=== PATIENT | male | born 1980 | race Caucasian/White ===

== ENCOUNTER 2019-05-18 10:58 | Emergency (ER) | payer SELFPAY ==
[2019-05-18] MEDS ORDERED: Ondansetron ODT 4 MG TAB ONE (11:25)
== END 2019-05-18 12:53 | disposition home or self-care (01) ==
LOC: ERS 10:58
DX: J10.1 Influenza due to other identified influenza virus with other respiratory manifestations (principal); F41.9 Anxiety disorder, unspecified; I10 Essential (primary) hypertension
CPT/HCPCS: 87804; 99283; Q0162

== ENCOUNTER 2019-07-16 01:32 | Inpatient (IN) | payer SELFPAY ==
[2019-07-16] MEDS ORDERED: Ondansetron PF 4 MG/2 ML Vial ONE (01:38)
[2019-07-16] MEDS ORDERED: Diazepam 5 MG TAB ONE (01:38)
[2019-07-16] MEDS ORDERED: Lorazepam 2 MG/ML VIAL ONE ×2 (01:38→03:05)
[2019-07-16 02:40] LABS: Hemoglobin 14.3 g/dL (14.0-18.0); Mean Corpuscular HGB CONC 34.8 g/dL (32.0-36.0); Mean Corpuscular Hemoglobin 36.5 pg (27.0-31.0); Mean Platelet Volume 7.5 fL (7.4-10.4); Platelet Count 128 thou/uL (130-400); RBC Distribution Width 12.7 % (11.5-14.5); White Blood Cell (WBC) Count 13.2 thou/uL (4.8-10.8)
[2019-07-16 02:49] LABS: #Lymphocytes 0.6 thou/uL (1.20-3.40); #Monocytes 0.5 thou/uL (0.11-0.59); %Basophils 0.3 % (0.0-1.0); %Eosinophils 0.3 % (0.0-10.0); %Lymphocytes 4.4 % (21.0-51.0); %Monocytes 4.1 % (0.0-10.0); %Neutrophils 90.9 % (42.0-75.0)
[2019-07-16 03:02] LABS: Albumin 4.2 g/dL (3.5-5.0)
[2019-07-16 03:03] LABS: Chloride 97 mmol/L (98-107); Potassium 3.7 mmol/L (3.5-5.1); Sodium 132 mmol/L (136-145)
[2019-07-16 03:04] LABS: Calcium 9.8 mg/dL (7.8-10.44); Globulin 3.9 g/dL (2.4-3.5); Glucose 209 mg/dL (70-105); Protein, Total 8.1 g/dL (6.0-8.3)
[2019-07-16 03:06] LABS: Anion Gap 21 mmol/L (10-20); Bilirubin, Total 3.3 mg/dL (0.2-1.2)
[2019-07-16 03:07] LABS: Alkaline Phosphatase 156 U/L (40-110)
[2019-07-16 03:08] LABS: BUN (Urea Nitrogen) 6 mg/dL (8.9-20.6); Calc. Creatinine Clearance 0 mL/min (70-130); Estimated GFR-MDRD 82
[2019-07-16 03:09] LABS: AST (SGOT) 154 U/L (5-34)
[2019-07-16 03:10] LABS: ALT (SGPT) 45 U/L (8-55); Lipase 61 U/L (8-78)
[2019-07-16 03:21] LABS: Lactic Acid 2.3 mmol/L (0.5-2.2)
[2019-07-16 03:25] LABS: Carbon Dioxide 17 mmol/L (22-29)
[2019-07-16 03:53] LABS: INR-International Normal Ratio 1.2; PTT 29.5 SEC (22.9-36.1); Prothrombin Time 15.4 SEC (12.0-14.7)
[2019-07-16] MEDS ORDERED: Lorazepam 2 MG/ML VIAL SLOW IVP PRN (04:53)
[2019-07-16] MEDS ORDERED: Ondansetron PF 4 MG/2 ML Vial IVP PRN ×2 (04:54→05:10)
[2019-07-16] MEDS ORDERED: Ondansetron ODT 4 MG TAB SL PRN (04:54)
[2019-07-16] MEDS ORDERED: Sodium Chloride 0.9% 1,000 ML IV SCH (05:00)
[2019-07-16] MEDS ORDERED: Dextrose 5%-Lactated Ringers 1,000 ML IV SCH (05:10)
[2019-07-16 05:17] VITALS: BMI 22.7
[2019-07-16] MEDS ORDERED: Diazepam 5 MG TAB PO PRN (05:21)
[2019-07-16] MEDS ORDERED: Diazepam 5 MG TAB PO SCH (05:30)
--- NOTE | 2019-07-16 05:34 | PDOC.FPRHP ---
- History of Present Illness Chief Complaint: seizure History of Present Illness: Patient is a 38M with PMHx of HTN, anxiety, and etoh abuse. Patient reports a 15-year hx of alcohol abuse, with a family hx of his father having etoh abuse. Patient was brought to the ED today because his woke up and saw patient having a grand mal seizure in the bed. Patient reportedly lost consciousness and bit his tongue. He did not have incontinence and does not remember the episode. Patient reports remembering seizing 2 days ago. Denies hallucinations. He has never had seizures, hallucinations, or been in alcohol withdrawal. He reports he stopped drinking Sunday night because he desires quitting. He usually drinks 12 beers/day and occasionally 1 pint of fireball. He has never tried to quit drinking before. He endorses vomiting x1, nausea, some headaches, fidgeting, sweating, and tremors. PCP: [facility] ED Course: 10mg diazepam, 2mg ativan x 2, 1L NS, 1 banana bag - Allergies/Adverse Reactions Allergies Allergy/AdvReac Type Severity Reaction Status Date / Time Sulfa (Sulfonamide Allergy Verified 07/16/19 05:16 Antibiotics) - Home Medications Medication Instructions Recorded Confirmed Type No Known 07/16/19 07/16/19 History - History PMHx: HTN, anxiety, alcohol abuse x 15 years PSHx: tonsillectomy FHx: father had a hx of etoh abuse Social: alcohol abuse x 15 years (12 beers/day, occasionally 1 pint fireball), no smoking or drug use; endorses xanax use for anxiety - Review of Systems General: denies: fever/chills, weight/appetite/sleep changes Eyes: denies: eye pain, vision changes ENT: denies: nasal congestion, rhinorrhea Respiratory: denies: cough, shortness of breath Cardiovascular: denies: chest pain, edema Gastrointestinal: reports: nausea, vomiting Genitourinary: denies: incontinence, dysuria Skin: denies: rashes, lesions Musculoskeletal: denies: tenderness, stiffness Neurological: reports: seizure. denies: numbness Psychological: reports: anxiety - Vital signs BP: [144/92] HR: [123] RR: [22] Tmax: [98.2F] Pox: [96]% on [RA] Wt: [77.11kg ] - Physical Exam Constitutional: NAD, well developed HEENT: normocephalic and atraumatic, no scleral icterus, MMM Neck: supple, FROM Chest: no-tender to palpation, no lesions Heart: normal S1/S2, other (regular rhythm, tachycardic rate) Lungs: CTAB, no respiratory distress Abdomen: soft, other (slightly ttp diffusely) Musculoskeletal: normal structure, normal tone Neurological: other (resting hand tremor) Skin: no rash/lesions, good turgor Heme/Lymphatic: no unusual bruising or bleeding, no purpura Psychiatric: normal mood and affect, intact recent and remote memory FMR H&P: Results - Labs Result Diagrams: 07/16/19 02:10 07/16/19 02:10 Lab results: WBC 13.2 thou/uL (4.8-10.8) H 07/16/19 02:10 Hgb 14.3 g/dL (14.0-18.0) 07/16/19 02:10 Hct 41.0 % (42.0-52.0) L 07/16/19 02:10 MCV 105.0 fL (78.0-98.0) H 07/16/19 02:10 Plt Count 128 thou/uL (130-400) L 07/16/19 02:10 Neutrophils % 90.9 % (42.0-75.0) H 07/16/19 02:10 Sodium 132 mmol/L (136-145) L 07/16/19 02:10 Potassium 3.7 mmol/L (3.5-5.1) 07/16/19 02:10 Chloride 97 mmol/L (98-107) L 07/16/19 02:10 Carbon Dioxide 17 mmol/L (22-29) L 07/16/19 02:10 BUN 6 mg/dL (8.9-20.6) L 07/16/19 02:10 Creatinine 1.02 mg/dL (0.7-1.3) 07/16/19 02:10 Glucose 209 mg/dL (70-105) H 07/16/19 02:10 Lactic Acid 2.3 mmol/L (0.5-2.2) H 07/16/19 02:59 Calcium 9.8 mg/dL (7.8-10.44) 07/16/19 02:10 Total Bilirubin 3.3 mg/dL (0.2-1.2) H 07/16/19 02:10 AST 154 U/L (5-34) H 07/16/19 02:10 ALT 45 U/L (8-55) 07/16/19 02:10 Alkaline Phosphatase 156 U/L (40-110) H 07/16/19 02:10 Serum Total Protein 8.1 g/dL (6.0-8.3) 07/16/19 02:10 Albumin 4.2 g/dL (3.5-5.0) 07/16/19 02:10 Lipase 61 U/L (8-78) 07/16/19 02:10 - EKG Interpretation EKG: Sinus tachycardia FMR H&P: A/P - Problem List (1) Alcohol withdrawal Current Visit: Yes Status: Acute Code(s): F10.239 - ALCOHOL DEPENDENCE WITH WITHDRAWAL, UNSPECIFIED (2) Seizures Current Visit: Yes Status: Acute Code(s): R56.9 - UNSPECIFIED CONVULSIONS (3) Alcoholic ketoacidosis Current Visit: Yes Status: Acute Code(s): E87.2 - ACIDOSIS (4) Macrocytic anemia Current Visit: Yes Status: Chronic Code(s): D53.9 - NUTRITIONAL ANEMIA, UNSPECIFIED (5) Hyperbilirubinemia Current Visit: Yes Status: Acute Code(s): E80.6 - OTHER DISORDERS OF BILIRUBIN METABOLISM (6) Transaminitis Current Visit: Yes Status: Acute Code(s): R74.0 - NONSPEC ELEV OF LEVELS OF TRANSAMNS & LACTIC ACID DEHYDRGNSE (7) HTN (hypertension) Current Visit: Yes Status: Chronic Code(s): I10 - ESSENTIAL (PRIMARY) HYPERTENSION (8) Anxiety Current Visit: Yes Status: Chronic Code(s): F41.9 - ANXIETY DISORDER, UNSPECIFIED - Plan Patient is a 38M with PMHx of HTN, anxiety, etoh abuse admitted for alcohol withdrawal #Alcohol withdrawal with seizures #Alcohol abuse -patient has extensive etoh abuse hx x 15 years, drinking 12 beers/day -reportedly stopping drinking sunday night -patient reports seizure activity 2 days ago, witnessed seizure last night -given 2mg ativan x 2 and 10mg diazepam in ED, chelsea calderon -CIWA score 29 in ED -[facility] protocol for trigger-guided treatment in acute phase -when patient stabilizes can consider transitioning to librium taper #Alcoholic ketoacidosis -lactic acid 2.3 -bicarb 17 -anion gap -UA and beta-hydroxybutyrate pending -start on D5Lr @ 125 -will continue to monitor #Transaminitis -AST 154 -ALT 45 -AST/ALT ratio >2, likely 2/2 alcohol -in combination with hyperbilirubinemia, will get liver US #Hyperbilirubinemia #Elevated alk phos -total bilirubin 3.3 -alk phos 156 -patient had slight abdominal ttp diffusely, was not complaining of RUQ pain -direct bilirubin pending -Liver US pending #Macrocytic anemia -H/H 14.3/41/0 -MCV 105 -B12 and RBC folate pending #HTN -untreated, patient does not have current pcp -will continue to monitor and can start on po meds prn #Anxiety -reportedly takes xanax for anxiety; receives this from someone from [facility] -reportedly last taken 1 week ago -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 Pertinent changes/additions are listed here. Quinten Cagle is a 38 year old M with a PMH of HTN-untreated, alcohol abuse who presented to the ED after having a seizure while sleeping. witnessed seizure. Pt states that he decided to quit drinking about three days ago, quit cold turkey. States that he also has SHIRA and has been taking Xanax that was prescribed by previous provider [facility]. Normally drinks about a 12 pk per day and occasionally also drinks a pint of fireball as well. After one day without alcohol, patient developed sweats, tremors, nausea/vomiting, diffuse abdominal pain. States that he had one seizure one day [employer] and two while sleeping last night. Denies incontinence, states that he did bite his tongue. No hx of alcohol withdrawl or seizures or DTs but he has never attempted stopping alcohol. He has been heavily drinking for about 15 years. Denies any fever, chills, chest pain, hematemesis, GI bleeding. In the ED, initial CIWA score was 29. Vitals were sig for tachycardia in 120s, BP 144/92, RR 22, T 98.2, O2 sat 96% on RA. He was given 1 L banana bag, 1 L NS, Ativan 2 mg X2, Diazepam 10 mg. Labs show mild anemia with hematocrit of 41.0, INR 1.2, Na 132, Lactic acid 2.3, Tbili 3.3, AST 154, ALT 45, Alk Phos 156. EKG showed sinus tachycardia, no ST changes. CIWA score improved to 15 after treatment in ED. On exam, patient was not diaphoretic, but he did have slight resting tremor, more pronounced with extension of fingers. HEENT AT/NC, MMM, no JVD. Cardiac, tachycardic no murmurs, lungs CTAB. Abdomen has mild diffuse TTP. No LE edema. Admitting patient to inpatient tele for acute alcohol withdrawal, withdrawal seizures, alcoholic ketoacidosis. Checking betahydroxybuturate, Mag , Phos. Starting ASE protocol with diazepam, thiamine, magnesium, folate with LR with 5% dextrose. Will monitor ASE scores q4h. Once stable, recommend starting librium taper. For mild macrocytic anemia, checking rbc folate and B12. For elevated alk phos and tbili, will check direct bili and RUQ US. Patient desires complete alcohol cessation. Anticipate hospital stay >48 hours. Please see internist note above for full H&P, which I have reviewed and agree with. Code status: FULL Code PCP: LUZ Addendum - Attending - Attending Attestation Date/Time: 07/16/19 5622 I personally evaluated the patient and discussed the management with Dr. Schafer/ Keenan. I agree with the History, Examination, Assessment and Plan documented above with any addition or exceptions noted below. Patient here for EtOH withdrawal. No history of DT and no hallucinations/ sympathetic overdrive at this time. Will begin on scheduled benzos, banana bag, dextrose. Monitor symptoms. Consider discharge on taper but await drug screen.
[2019-07-16 06:56] LABS: Hemoglobin A1c 5.1 % (4.0-6.0)
[2019-07-16 07:04] LABS: Phosphorus 1.6 mg/dL (2.3-4.7)
[2019-07-16] MEDS ORDERED: Potassium Phosphate 9 MMOL in Sodium Chloride 0.9% 100 ML IVPB SCH (07:15)
--- NOTE | 2019-07-16 07:55 | ULT ---
US Gallbladder RUQ: 07/16/2019 5:16 AM CLINICAL HISTORY: Elevated bilirubin and alkaline phosphatase. STUDY: Limited right upper quadrant ultrasound of abdomen. COMPARISON: None. FINDINGS: Liver: Size: Normal. Echogenicity: Hyperechoic consistent with hepatic steatosis. Contour: Smooth. Mass: None. Bile ducts: No intrahepatic or extrahepatic biliary dilatation. Common bile duct measures 4 mm. Gallbladder: Normal. Pancreas: Head, body, and tail appear normal. Right kidney: No pelvicalyceal dilatation. Right kidney measuring 13.2 cm in length. IMPRESSION: Fatty liver
[2019-07-16] MEDS: Folic Acid 1 MG TAB PO SCH (08:08)
[2019-07-16] MEDS: Famotidine 20 MG TAB PO SCH ×2 (08:08→21:41)
[2019-07-16] MEDS: Enoxaparin Sodium 40 MG/0.4 ML SYRINGE SC SCH (08:08)
[2019-07-16] MEDS: Multivitamin W/ Minerals 1 TAB PO SCH (08:08)
[2019-07-16] MEDS ORDERED: Multivitamins, Adult 10 ML, Thiamine HCl 100 MG, Folic Acid 1 MG in Dextrose 5 %-0.45 %... IV SCH (09:00)
[2019-07-16] MEDS: chlordiazePOXIDE HCl 25 MG CAP PO SCH ×3 (09:26→21:41)
[2019-07-16 10:25] LABS: Anion Gap 11 mmol/L (10-20); BUN (Urea Nitrogen) 5 mg/dL (8.9-20.6); Calc. Creatinine Clearance 135 mL/min (70-130); Calcium 8.5 mg/dL (7.8-10.44); Carbon Dioxide 24 mmol/L (22-29); Chloride 102 mmol/L (98-107); Estimated GFR-MDRD Greater than 90; Glucose 113 mg/dL (70-105); Potassium 3.2 mmol/L (3.5-5.1); Sodium 134 mmol/L (136-145)
[2019-07-16 11:44] LABS: Bacteria/HPF None Seen HPF (None Seen); Bilirubin Negative (Negative); Blood, Urine Negative (Negative); Clarity Clear (Clear); Glucose, Urine (Dipstick) Normal (Negative); Leukocyte Negative Leu/uL (Negative); Nitrite Negative (Negative); Protein, Urine (Dipstick) 20 mg/dL (Neg-Trace); RBC/HPF 0-3 HPF (0-3); Squamous Epithelial None Seen HPF (0-3); WBC/HPF 0-3 HPF (0-3)
[2019-07-16 12:00] LABS: Amphetamine Not Detected (NotDetected); Barbiturates Screen Not Detected (NotDetected); Benzodiazepine Screen Detected (NotDetected); Cocaine Metabolite Screen Not Detected (NotDetected); Medtox Control Line Valid? VALID (VALID); Medtox Reader # READER 4; Methadone Not Detected (NotDetected); Methamphetamine Not Detected (NotDetected); Opiate Screen Not Detected (NotDetected); Oxycodone Screen Not Detected (NotDetected); Phencyclidine (PCP) Not Detected (NotDetected); THC/Cannabinoid Screen Not Detected (NotDetected); Tricyclic Screen Not Detected (NotDetected)
[2019-07-17] MEDS: chlordiazePOXIDE HCl 25 MG CAP PO SCH ×4 (02:23→21:13)
[2019-07-17] MEDS ORDERED: Diazepam 5 MG TAB PO PRN (04:00)
[2019-07-17 04:56] LABS: #Basophils 0.1 thou/uL (0.0-0.2); #Eosinphils 0.2 thou/uL (0.0-0.7); #Lymphocytes 1.4 thou/uL (1.20-3.40); #Monocytes 0.7 thou/uL (0.11-0.59); #Neutrophils 9.9 thou/uL (1.40-6.50); %Basophils 0.6 % (0.0-1.0); %Eosinophils 1.6 % (0.0-10.0); %Lymphocytes 11.1 % (21.0-51.0); %Monocytes 5.6 % (0.0-10.0); %Neutrophils 81.1 % (42.0-75.0); Hemoglobin 12.8 g/dL (14.0-18.0); Mean Corpuscular HGB CONC 34.8 g/dL (32.0-36.0); Mean Corpuscular Hemoglobin 36.8 pg (27.0-31.0); Mean Platelet Volume 7.5 fL (7.4-10.4); Platelet Count 98 thou/uL (130-400); RBC Distribution Width 12.5 % (11.5-14.5); Red Blood Cell (RBC) Count 3.48 mill/uL (4.70-6.10); White Blood Cell (WBC) Count 12.2 thou/uL (4.8-10.8)
[2019-07-17 05:16] LABS: ALT (SGPT) 45 U/L (8-55); AST (SGOT) 186 U/L (5-34); Albumin 3.9 g/dL (3.5-5.0); Alkaline Phosphatase 143 U/L (40-110); Anion Gap 13 mmol/L (10-20); BUN (Urea Nitrogen) 5 mg/dL (8.9-20.6); Bilirubin, Total 2.9 mg/dL (0.2-1.2); Calc. Creatinine Clearance 150 mL/min (70-130); Calcium 8.7 mg/dL (7.8-10.44); Carbon Dioxide 23 mmol/L (22-29); Chloride 98 mmol/L (98-107); Estimated GFR-MDRD Greater than 90; Globulin 3.5 g/dL (2.4-3.5); Glucose 77 mg/dL (70-105); Magnesium 1.9 mg/dL (1.6-2.6); Potassium 3.4 mmol/L (3.5-5.1); Protein, Total 7.4 g/dL (6.0-8.3); Sodium 131 mmol/L (136-145)
[2019-07-17 05:17] LABS: Phosphorus 1.9 mg/dL (2.3-4.7)
[2019-07-17] MEDS ORDERED: Potassium Phosphate 9 MMOL in Sodium Chloride 0.9% 100 ML IVPB SCH (07:30)
[2019-07-17] MEDS ORDERED: Lorazepam 2 MG/ML VIAL SLOW IVP PRN (07:37)
--- NOTE | 2019-07-17 08:08 | PDOC.FM ---
- Subjective Subjective: Doing well overnight, no acute events. Tolerating PO well. Tremor improved, no seizure-like events. Mentation at baseline. Still states he is committed to quitting EtOH and benzo use. No fever/chills, cough, congestion, CP, SOB. - Objective MAR Reviewed: Yes Vital Signs & Weight: Vital Signs (12 hours) Temp Pulse Resp BP BP Pulse Ox 07/17/19 04:22 142/93 H 07/17/19 03:30 99.6 F 94 23 H 142/93 H 98 07/17/19 00:00 98.8 F 89 23 H 140/87 140/87 97 07/16/19 21:37 98.6 F 92 18 134/88 98 Weight Admit Weight 80.286 kg Weight 80.286 kg Result Diagrams: 07/17/19 04:40 07/17/19 04:40 EKG Reviewed by me: Yes (NSR on tele) Phys Exam - Physical Examination Constitutional: NAD (resting comfortably, good spirits) HEENT: moist MMs Neck: supple Respiratory: no wheezing, no rales, no rhonchi, clear to auscultation bilateral Cardiovascular: RRR, no significant murmur, no rub Gastrointestinal: soft, non-tender, no distention, positive bowel sounds Musculoskeletal: no edema Neurological: moves all 4 limbs BL resting tremor Psychiatric: A&O x 3 Dx/Plan (1) Alcohol withdrawal Code(s): F10.239 - ALCOHOL DEPENDENCE WITH WITHDRAWAL, UNSPECIFIED Status: Acute (2) Hyperbilirubinemia Code(s): E80.6 - OTHER DISORDERS OF BILIRUBIN METABOLISM Status: Acute (3) Transaminitis Code(s): R74.0 - NONSPEC ELEV OF LEVELS OF TRANSAMNS & LACTIC ACID DEHYDRGNSE Status: Acute (4) HTN (hypertension) Code(s): I10 - ESSENTIAL (PRIMARY) HYPERTENSION Status: Chronic - Plan Plan: Patient is a 38M with PMHx of HTN, anxiety, etoh and xanax abuse admitted for alcohol withdrawal #Acute EtOH withdrawal in setting of EtOH abuse - patient has extensive etoh abuse hx x 15 years, drinking 12 beers/day - reportedly stopping drinking sunday night - patient reports seizure activity 2 days ago, witnessed seizure night prior to admissoin - given 2mg ativan x 2 and 10mg diazepam in ED, banana bag - Started on librium 25mg q6h with ASE 8-11, will cont to monitor and titrate as appropriate - will need continued taper at discharge, counseled at length on avoiding EtOH and other benzo use when on librium taper, voiced agreement and understanding. #Hypophos - replace and monitor as appropriate #Alcoholic ketoacidosis, resolved - Initial lactic acid 2.3, bicarb 17 -> 23. Gap closed. 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 Code: Full PCP: [facility] Addendum - Attending - Attending Attestation Date/Time: 07/17/19 8958 I personally evaluated the patient and discussed the management with Dr. Ellison. I agree with the History, Examination, Assessment and Plan documented above with any addition or exceptions noted below.
[2019-07-17] MEDS: Famotidine 20 MG TAB PO SCH ×2 (08:39→21:13)
[2019-07-17] MEDS: Multivitamin W/ Minerals 1 TAB PO SCH (08:39)
[2019-07-17] MEDS: Magnesium Oxide 400 MG TAB PO SCH (08:39)
[2019-07-17] MEDS: Folic Acid 1 MG TAB PO SCH (08:39)
[2019-07-17] MEDS: Thiamine 100 MG TAB PO SCH (08:39)
[2019-07-17] MEDS: Enoxaparin Sodium 40 MG/0.4 ML SYRINGE SC SCH (08:42)
[2019-07-17] MEDS ORDERED: chlordiazePOXIDE HCl 25 MG CAP PO SCH (10:45)
[2019-07-17 13:14] LABS: Hematocrit 37.1 % (37.5-51.0); RBC Folate Test Component 768 ng/mL (>498)
[2019-07-18 04:38] LABS: #Basophils 0.1 thou/uL (0.0-0.2); #Eosinphils 0.2 thou/uL (0.0-0.7); #Lymphocytes 1.4 thou/uL (1.20-3.40); #Monocytes 1.1 thou/uL (0.11-0.59); #Neutrophils 11.7 thou/uL (1.40-6.50); %Basophils 0.5 % (0.0-1.0); %Eosinophils 1.7 % (0.0-10.0); %Lymphocytes 9.8 % (21.0-51.0); %Monocytes 7.3 % (0.0-10.0); %Neutrophils 80.7 % (42.0-75.0); Hemoglobin 13.5 g/dL (14.0-18.0); Mean Corpuscular HGB CONC 33.9 g/dL (32.0-36.0); Mean Corpuscular Hemoglobin 36.2 pg (27.0-31.0); Mean Platelet Volume 7.8 fL (7.4-10.4); Platelet Count 136 thou/uL (130-400); RBC Distribution Width 12.5 % (11.5-14.5); Red Blood Cell (RBC) Count 3.72 mill/uL (4.70-6.10); White Blood Cell (WBC) Count 14.4 thou/uL (4.8-10.8)
[2019-07-18 05:18] LABS: ALT (SGPT) 52 U/L (8-55); AST (SGOT) 164 U/L (5-34); Albumin 4.4 g/dL (3.5-5.0); Alkaline Phosphatase 183 U/L (40-110); Anion Gap 12 mmol/L (10-20); BUN (Urea Nitrogen) 7 mg/dL (8.9-20.6); Bilirubin, Total 1.8 mg/dL (0.2-1.2); Calc. Creatinine Clearance 129 mL/min (70-130); Calcium 9.8 mg/dL (7.8-10.44); Carbon Dioxide 27 mmol/L (22-29); Chloride 95 mmol/L (98-107); Estimated GFR-MDRD Greater than 90; Globulin 3.8 g/dL (2.4-3.5); Glucose 111 mg/dL (70-105); Phosphorus 2.7 mg/dL (2.3-4.7); Potassium 3.4 mmol/L (3.5-5.1); Protein, Total 8.2 g/dL (6.0-8.3); Sodium 131 mmol/L (136-145)
[2019-07-18] MEDS ORDERED: Potassium Chloride 20 MEQ TAB PO SCH (07:00)
--- NOTE | 2019-07-18 07:16 | PDOC.FM ---
- Subjective Subjective: Doing well this morning, no acute events overnight. States has occasional tachycardia, BP improved. Tremor improved. Able to get some rest. No fever/ chills, CP, SOB, n/v. Tolerating PO well. Ambulating well. - Objective MAR Reviewed: Yes Vital Signs & Weight: Vital Signs (12 hours) Temp Pulse Resp BP BP Pulse Ox 07/18/19 03:55 98.9 F 104 H 18 137/83 137/83 97 07/18/19 03:01 124/88 07/17/19 21:15 124/88 07/17/19 20:22 98.2 F 97 14 124/88 96 Weight Admit Weight 80.286 kg Weight 80.286 kg I&O: 07/16/19 07/17/19 07/18/19 06:59 06:59 06:59 Intake Total 1400 Balance 1400 Result Diagrams: 07/18/19 04:25 07/18/19 04:25 EKG Reviewed by me: Yes (Tele: NSR, occasionally tachy) Phys Exam - Physical Examination Constitutional: NAD (resting comfortably) HEENT: moist MMs Neck: supple Respiratory: no wheezing, no rales, no rhonchi, clear to auscultation bilateral Cardiovascular: no significant murmur, no rub Tachycardia, regular rhythm Gastrointestinal: soft, non-tender, no distention, positive bowel sounds Musculoskeletal: no edema Neurological: moves all 4 limbs BL resting tremor, improved Psychiatric: normal affect, A&O x 3 Dx/Plan (1) Alcohol withdrawal Code(s): F10.239 - ALCOHOL DEPENDENCE WITH WITHDRAWAL, UNSPECIFIED Status: Acute (2) Hyperbilirubinemia Code(s): E80.6 - OTHER DISORDERS OF BILIRUBIN METABOLISM Status: Acute (3) Transaminitis Code(s): R74.0 - NONSPEC ELEV OF LEVELS OF TRANSAMNS & LACTIC ACID DEHYDRGNSE Status: Acute (4) HTN (hypertension) Code(s): I10 - ESSENTIAL (PRIMARY) HYPERTENSION Status: Chronic - Plan Plan: Patient is a 38M with PMHx of HTN, anxiety, etoh and xanax abuse admitted for alcohol withdrawal #Acute EtOH withdrawal in setting of EtOH abuse, improved - patient has extensive etoh abuse hx x 15 years, drinking 12 beers/day - reportedly stopping drinking sunday night - patient reports seizure activity 2 days ago, witnessed seizure night prior to admission - given 2mg ativan x 2 and 10mg diazepam in ED, banana bag - Started on librium 25mg q6h, increased to Librium 50mg TID with ASE 7-9 currently. - will need continued librium taper at discharge, counseled at length on avoiding EtOH and other benzo use when on librium taper, voiced agreement and understanding. #Hypophos, resolved - replaced, monitor #Alcoholic ketoacidosis, resolved - Initial lactic acid 2.3, bicarb 17 -> 23. Gap closed. 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 Code: Full PCP: [facility] Addendum - Attending - Attending Attestation Date/Time: 07/18/19 1424 I personally evaluated the patient and discussed the management with Dr. Ellison. I agree with the History, Examination, Assessment and Plan documented above with any addition or exceptions noted below.
[2019-07-18] MEDS: Famotidine 20 MG TAB PO SCH (08:37)
[2019-07-18] MEDS: Multivitamin W/ Minerals 1 TAB PO SCH (08:37)
[2019-07-18] MEDS: Magnesium Oxide 400 MG TAB PO SCH (08:37)
[2019-07-18] MEDS: Folic Acid 1 MG TAB PO SCH (08:37)
[2019-07-18] MEDS: Thiamine 100 MG TAB PO SCH (08:37)
[2019-07-18] MEDS: chlordiazePOXIDE HCl 25 MG CAP PO SCH ×2 (08:37→14:35)
[2019-07-18 13:06] VITALS: BP 138/81; TEMP 98.6
--- NOTE | 2019-07-18 14:11 | DIS ---
DATE OF ADMISSION: 07/16/2019 DATE OF DISCHARGE: 07/18/2019 RESIDENT: Akash Ellison MD ADMITTING ATTENDING: Guru Calderon MD DISCHARGE ATTENDING: Guru Calderon MD. CONSULTS: None. PROCEDURES: Abdominal ultrasound on 07/16/2019, demonstrating fatty liver. PRIMARY DIAGNOSES: 1. Acute alcohol withdrawal in the setting of chronic alcohol abuse. 2. Hypophosphatemia, resolved. 3. Alcoholic ketoacidosis, resolved. 4. Transaminitis and hyperbilirubinemia secondary to alcohol abuse, improving. SECONDARY DIAGNOSES: 1. Macrocytic anemia. 2. Hypertension. 3. Anxiety. DISCHARGE MEDICATIONS: 1. Librium 50 mg p.o. b.i.d. x2 days, then decrease to 50 mg p.o. once daily for 2 days, then discontinue. 2. Thiamine 100 mg p.o. daily. HISTORY OF PRESENT ILLNESS AND HOSPITAL COURSE: The patient is a 38-year-old male with history of hypertension, anxiety, and alcohol abuse, reports a 15-year history of alcohol abuse, stating that he usually drinks 12 beers per day and a pint of fireball occasionally and has never tried to quit before. He presented to the ED because his awoke and felt that he was having a seizure-like event. The patient reportedly lost consciousness and bit his tongue. He did not have any incontinence and does not remember the episode. The patient does report remember seizing 2 days prior. Denies any hallucinations. He says he has never had any delirium tremens or alcohol withdrawal prior to this. He reports that he stopped drinking on 07/12/2019, and desires quitting completely. In the emergency department, he was given 10 mg of diazepam, 2 mg of Ativan, 1 L of normal saline and a banana bag and was admitted for further evaluation and management of acute alcohol withdrawal. The patient was monitored closely with ASE protocol. He was initially having a scores into the 20s and thus, his benzodiazepine was uptitrated and the patient was initially started on 25 mg of Librium q.6 hours, this was increased to Librium 50 mg t.i.d. with improvement of a scores into the mid upper single digits. The patient was monitored closely and his resting tremor continued to improve. The patient did not have any further seizure-like events and the patient was continued on the appropriate vitamin supplementation. The patient's blood pressure remained at goal and the patient's tachycardia improved. At the time of discharge, the patient was very stable and eager to be discharged home. He was day #6 from his last drink and thus appeared to be out of the acute withdrawal phase. It was discussed with the patient that he would be discharged home on a Librium taper as per above and the patient voiced agreement understanding of this. He stated that he wishes to quit all illicit Xanax and alcohol use and voiced understanding of the risk of using these medications and drugs with Librium. The patient also presented with mild hypophosphatemia, alcoholic ketoacidosis, this resolved with IV fluids and management of his withdrawal. The patient also has transaminitis with an AST of 154 and ALT of 45. His T bilirubin was initially 3.3, is downtrended to 1.8 at time of discharge. His AST ALT ratio was greater than 2, thus indicative of alcoholic transaminitis. The patient had a right upper quadrant ultrasound that just showed a fatty liver. The patient had a mild anemia of 14.3, which is microcytic and replaced with the appropriate vitamin. The patient also has a history of underlying anxiety for which he self treats with Xanax. It was instructed the patient to discontinue Xanax use, follow up with the primary care physician for further management and may consider SSRI in the future. At the time of discharge, the patient was doing very well and stable, very eager to go home. Discharge plan discussed with the patient at bedside who voiced agreement understanding and all risks associated using Xanax and alcohol and states that he wishes to quit. All questions were answered appropriately. The patient was discharged home. DISPOSITION: Stable. DISCHARGE INSTRUCTIONS: 1. Location: Home. 2. Diet: Regular. 3. Activity: As tolerated. 4. Followup: The patient should establish with a primary care physician and follow up within 1-2 weeks of discharge. Job ID: [id number]
--- NOTE | 2019-07-19 09:58 | EKG ---
Test Reason : Blood Pressure : / mmHG Vent. Rate : 130 BPM Atrial Rate : 130 BPM P-R Int : 152 ms QRS Dur : 078 ms QT Int : 306 ms P-R-T Axes : 071 077 038 degrees QTc Int : 450 ms Sinus tachycardia Otherwise normal ECG Confirmed by ANTHONY WADE M.D. ([id number]), index editor YURY BUTT ([id number]) on 07/19/2019 9:57:52 AM Referred By: Confirmed By:ANTHONY WADE M.D.
== END 2019-07-18 15:00 | disposition home or self-care (01) | DRG 897 ==
LOC: ERS 01:32 → 2NO 03:39
PROVIDERS: ADMIT Family Medicine; ATTEND Family Medicine
DX: F10.239 Alcohol dependence with withdrawal, unspecified (principal); E87.2 Acidosis; E83.39 Other disorders of phosphorus metabolism; R74.0 Nonspecific elevation of levels of transaminase and lactic acid dehydrogenase [LDH]; D53.9 Nutritional anemia, unspecified; G40.909 Epilepsy, unspecified, not intractable, without status epilepticus; I10 Essential (primary) hypertension
CPT/HCPCS: 36415; 36416; 76705; 80053; 80306; 81001; 82010; 82248; 82607; 82747; 83036; 83605; 83690; 83735; 84100; 85025; 85610; 85730; 93005; J1650; J2060; J2405; J3411; J3475; J3490; J7042

== ENCOUNTER 2025-01-27 14:19 | Emergency (ER) | payer OTHER | END 2025-01-27 16:10 | disposition home or self-care (01) | LOC: ERS 14:19 | DX: H02.89 Other specified disorders of eyelid (principal); T78.40XA Allergy, unspecified, initial encounter; I10 Essential (primary) hypertension; Z79.899 Other long term (current) drug therapy | CPT/HCPCS: 99282 ==

== ENCOUNTER 2025-04-08 03:35 | Emergency (ER) | payer OTHER ==
[2025-04-08 05:04] LABS: #Basophils 0.13 10x3/uL (0.0-0.2); #Eosinophils Less than 0.03 10x3/uL (0.0-0.7); #Monocytes 1.34 10x3/uL (0.11-0.59); #Neutrophils 10.81 10x3/uL (1.40-6.50); %Basophils 1.0 % (0.0-1.0); %Eosinophils 0.1 % (0.0-10.0); %Lymphocytes 9.0 % (21.0-51.0); %Monocytes 9.8 % (0.0-10.0); %Neutrophils 79.0 % (42.0-75.0); Hematocrit 36.3 % (42.0-52.0); Hemoglobin 12.7 g/dL (14.0-18.0); Mean Corpuscular Hemoglobin 33.5 pg (27.0-31.0); Mean Corpuscular Volume 95.8 fL (78.0-98.0); Platelet Count 213 10x3/uL (130-400); Red Blood Cell (RBC) Count 3.79 mill/uL (4.70-6.10); White Blood Cell (WBC) Count 13.68 10x3/uL (4.8-10.8)
[2025-04-08 05:28] LABS: ALT (SGPT) 54 U/L (Less than 45); AST (SGOT) 191 U/L (11-34); Albumin 3.4 g/dL (3.1-4.5); Alkaline Phosphatase 294 U/L (40-110); Anion Gap 18 mmol/L (10-20); BUN (Urea Nitrogen) 9 mg/dL (8.9-20.6); Bilirubin, Total 3.6 mg/dL (0.3-1.2); Calc. Creatinine Clearance 0 mL/min (70-130); Calcium 8.8 mg/dL (7.8-10.44); Carbon Dioxide 24 mmol/L (22-29); Chloride 95 mmol/L (98-107); Globulin 4.6 g/dL (2.4-3.5); Glucose 127 mg/dL (70-105); Potassium 2.9 mmol/L (3.5-5.1); Sodium 134 mmol/L (136-145)
[2025-04-08] MEDS ORDERED: Cefepime 2 GM VIAL ONE (06:02)
[2025-04-08] MEDS ORDERED: VANCOMYCIN 2 GRAM/400 ML BAG 400 ML ONE (06:02)
[2025-04-08] MEDS ORDERED: Potassium Bicarbonate/Cit Ac 20 MEQ TAB ONE (07:11)
== END 2025-04-08 09:24 | disposition home or self-care (01) ==
LOC: ERS 03:35
DX: L03.115 Cellulitis of right lower limb (principal); E87.6 Hypokalemia; R74.01 Elevation of levels of liver transaminase levels; I10 Essential (primary) hypertension
CPT/HCPCS: 80053; 83605; 85025; 86141; 87040; 87149; 96365; 96367; 96375; J0692; J3010; J3375

== ENCOUNTER 2025-04-14 13:47 | Inpatient (IN) | payer OTHER ==
[~2025-04-14 13:47] MED LIST: Iopamidol-370 76% 500 ML MDV (1 ML CHARGE) ONE
[2025-04-14] MEDS ORDERED: Ketorolac Tromethamine 30 MG (1 mL) VIAL ONE (15:41)
[2025-04-14 16:24] LABS: #Basophils 0.18 10x3/uL (0.0-0.2); #Eosinophils 0.09 10x3/uL (0.0-0.7); #Monocytes 0.83 10x3/uL (0.11-0.59); #Neutrophils 9.54 10x3/uL (1.40-6.50); %Basophils 1.5 % (0.0-1.0); %Eosinophils 0.7 % (0.0-10.0); %Lymphocytes 12.3 % (21.0-51.0); %Monocytes 6.7 % (0.0-10.0); %Neutrophils 77.4 % (42.0-75.0); Hematocrit 37.3 % (42.0-52.0); Hemoglobin 12.4 g/dL (14.0-18.0); Mean Corpuscular Hemoglobin 33.5 pg (27.0-31.0); Mean Corpuscular Volume 100.8 fL (78.0-98.0); Platelet Count 231 10x3/uL (130-400); Red Blood Cell (RBC) Count 3.70 mill/uL (4.70-6.10); White Blood Cell (WBC) Count 12.32 10x3/uL (4.8-10.8)
[2025-04-14] MEDS ORDERED: Cefepime 2 GM VIAL ONE (16:34)
[2025-04-14 16:40] LABS: ALT (SGPT) 41 U/L (Less than 45); AST (SGOT) 162 U/L (11-34); Albumin 3.1 g/dL (3.1-4.5); Alkaline Phosphatase 465 U/L (40-110); Anion Gap 19 mmol/L (10-20); BUN (Urea Nitrogen) 6 mg/dL (8.9-20.6); Bilirubin, Total 1.5 mg/dL (0.3-1.2); Calc. Creatinine Clearance 0 mL/min (70-130); Calcium 9.0 mg/dL (7.8-10.44); Carbon Dioxide 31 mmol/L (22-29); Chloride 99 mmol/L (98-107); Globulin 4.6 g/dL (2.4-3.5); Glucose 100 mg/dL (70-105); Potassium 4.2 mmol/L (3.5-5.1); Sodium 145 mmol/L (136-145)
[2025-04-14] MEDS ORDERED: Electrolyte Replacement Protocol 1 EACH FS SCH (18:00)
[2025-04-14] MEDS ORDERED: PHOS-NAK 1 PKT PACK PO PRN (18:15)
[2025-04-14] MEDS ORDERED: Potassium Chloride 20 MEQ in Premix 1 BAG IVPB PRN (18:15)
[2025-04-14 18:21] VITALS: BMI 23.1
[2025-04-14] MEDS ORDERED: VANCOMYCIN 2 GRAM/400 ML BAG 400 ML ONE (18:23)
[2025-04-14] MEDS: Multivit, Therapeutic 1 TAB PO SCH (20:51)
[2025-04-14] MEDS: Famotidine/PF 20 mg/2ml Vial SLOW IVP SCH (20:51)
[2025-04-14] MEDS: Folic Acid 1 MG TAB PO SCH (20:51)
[2025-04-14] MEDS ORDERED: VANCOMYCIN 2 GRAM/400 ML Premix BAG IVPB SCH (21:00)
[2025-04-14] MEDS ORDERED: Vancomycin 1 GM in Premix 1 BAG IVPB SCH (21:00)
[2025-04-15 03:09] LABS: Cocaine Metabolite Screen Negative (Negative); THC/Cannabinoid Screen PRELIM POSITIVE (Negative); Tricyclic Screen Negative (Negative)
[2025-04-15] MEDS: Vancomycin 1.25 GM / NS 250 ML VIAL-2-BAG IVPB SCH (04:55)
[2025-04-15 05:51] LABS: #Basophils 0.12 10x3/uL (0.0-0.2); #Eosinophils 0.12 10x3/uL (0.0-0.7); #Monocytes 0.51 10x3/uL (0.11-0.59); #Neutrophils 6.35 10x3/uL (1.40-6.50); %Basophils 1.5 % (0.0-1.0); %Eosinophils 1.5 % (0.0-10.0); %Lymphocytes 11.9 % (21.0-51.0); %Monocytes 6.3 % (0.0-10.0); %Neutrophils 77.8 % (42.0-75.0); Hematocrit 32.7 % (42.0-52.0); Hemoglobin 10.6 g/dL (14.0-18.0); Mean Corpuscular Hemoglobin 33.2 pg (27.0-31.0); Mean Corpuscular Volume 102.5 fL (78.0-98.0); Platelet Count 149 10x3/uL (130-400); Red Blood Cell (RBC) Count 3.19 mill/uL (4.70-6.10); White Blood Cell (WBC) Count 8.15 10x3/uL (4.8-10.8)
[2025-04-15 06:08] LABS: ALT (SGPT) 31 U/L (Less than 45); AST (SGOT) 111 U/L (11-34); Albumin 2.6 g/dL (3.1-4.5); Alkaline Phosphatase 369 U/L (40-110); Anion Gap 12 mmol/L (10-20); BUN (Urea Nitrogen) 6 mg/dL (8.9-20.6); Bilirubin, Total 1.6 mg/dL (0.3-1.2); Calc. Creatinine Clearance 182 mL/min (70-130); Calcium 8.4 mg/dL (7.8-10.44); Carbon Dioxide 25 mmol/L (22-29); Chloride 103 mmol/L (98-107); Globulin 3.6 g/dL (2.4-3.5); Glucose 80 mg/dL (70-105); Potassium 4.1 mmol/L (3.5-5.1); Sodium 136 mmol/L (136-145)
[2025-04-15 06:09] LABS: Vancomycin, Random 9.8 ug/mL (See Comment)
[2025-04-15 06:10] LABS: CRP, High Sensitivity at Bryan 4.70 mg/dL (< or = 0.5); Magnesium 1.3 mg/dL (1.6-2.6)
[2025-04-15] MEDS: Acetaminophen 325 MG TAB PO PRN (07:55)
[2025-04-15] MEDS: Magnesium Sulfate In Water 4 GM in Premix 1 BAG IVPB PRN (07:59)
[2025-04-15] MEDS: Enoxaparin 40 MG (0.4 mL) SYRINGE SC SCH (07:59)
[2025-04-15] MEDS: Ketorolac Tromethamine 30 MG (1 mL) VIAL IVP SCH (10:08)
[2025-04-15 14:29] VITALS: BMI 23.1
[2025-04-16 10:12] LABS: Anion Gap 9 mmol/L (10-20); BUN (Urea Nitrogen) 11 mg/dL (8.9-20.6); Calc. Creatinine Clearance 146 mL/min (70-130); Calcium 8.5 mg/dL (7.8-10.44); Carbon Dioxide 26 mmol/L (22-29); Chloride 105 mmol/L (98-107); Glucose 98 mg/dL (70-105); Potassium 3.7 mmol/L (3.5-5.1); Sodium 136 mmol/L (136-145)
[2025-04-16 10:22] LABS: #Basophils 0.07 10x3/uL (0.0-0.2); #Eosinophils 0.24 10x3/uL (0.0-0.7); #Monocytes 0.57 10x3/uL (0.11-0.59); #Neutrophils 10.95 10x3/uL (1.40-6.50); %Basophils 0.5 % (0.0-1.0); %Eosinophils 1.9 % (0.0-10.0); %Lymphocytes 6.7 % (21.0-51.0); %Monocytes 4.5 % (0.0-10.0); %Neutrophils 85.7 % (42.0-75.0); Hematocrit 33.0 % (42.0-52.0); Hemoglobin 11.3 g/dL (14.0-18.0); Mean Corpuscular Hemoglobin 34.6 pg (27.0-31.0); Mean Corpuscular Volume 100.9 fL (78.0-98.0); Platelet Count 148 10x3/uL (130-400); Red Blood Cell (RBC) Count 3.27 mill/uL (4.70-6.10); White Blood Cell (WBC) Count 12.78 10x3/uL (4.8-10.8)
[2025-04-16 16:11] LABS: Magnesium 1.8 mg/dL (1.6-2.6)
[2025-04-17 05:24] LABS: #Basophils 0.09 10x3/uL (0.0-0.2); #Eosinophils 0.24 10x3/uL (0.0-0.7); #Monocytes 0.59 10x3/uL (0.11-0.59); #Neutrophils 10.09 10x3/uL (1.40-6.50); %Basophils 0.7 % (0.0-1.0); %Eosinophils 2.0 % (0.0-10.0); %Lymphocytes 9.2 % (21.0-51.0); %Monocytes 4.8 % (0.0-10.0); %Neutrophils 82.6 % (42.0-75.0); Hematocrit 31.1 % (42.0-52.0); Hemoglobin 10.2 g/dL (14.0-18.0); Mean Corpuscular Hemoglobin 33.6 pg (27.0-31.0); Mean Corpuscular Volume 102.3 fL (78.0-98.0); Platelet Count 125 10x3/uL (130-400); Red Blood Cell (RBC) Count 3.04 mill/uL (4.70-6.10); White Blood Cell (WBC) Count 12.22 10x3/uL (4.8-10.8)
[2025-04-17 05:47] LABS: Anion Gap 9 mmol/L (10-20); BUN (Urea Nitrogen) 8 mg/dL (8.9-20.6); Calc. Creatinine Clearance 170 mL/min (70-130); Calcium 8.4 mg/dL (7.8-10.44); Carbon Dioxide 26 mmol/L (22-29); Chloride 101 mmol/L (98-107); Glucose 90 mg/dL (70-105); Potassium 3.3 mmol/L (3.5-5.1); Sodium 133 mmol/L (136-145)
[2025-04-17] MEDS: Thiamine 100 MG TAB PO SCH (09:03)
[2025-04-17] MEDS: Ketorolac Tromethamine 30 MG (1 mL) VIAL IVP PRN (22:20)
[2025-04-18 06:42] LABS: #Basophils 0.08 10x3/uL (0.0-0.2); #Eosinophils 0.35 10x3/uL (0.0-0.7); #Monocytes 0.53 10x3/uL (0.11-0.59); #Neutrophils 6.24 10x3/uL (1.40-6.50); %Basophils 1.0 % (0.0-1.0); %Eosinophils 4.2 % (0.0-10.0); %Lymphocytes 12.7 % (21.0-51.0); %Monocytes 6.4 % (0.0-10.0); %Neutrophils 74.7 % (42.0-75.0); Hematocrit 32.0 % (42.0-52.0); Hemoglobin 10.5 g/dL (14.0-18.0); Mean Corpuscular Hemoglobin 34.4 pg (27.0-31.0); Mean Corpuscular Volume 104.9 fL (78.0-98.0); Platelet Count 130 10x3/uL (130-400); Red Blood Cell (RBC) Count 3.05 mill/uL (4.70-6.10); White Blood Cell (WBC) Count 8.34 10x3/uL (4.8-10.8)
[2025-04-18 06:56] LABS: ALT (SGPT) 30 U/L (Less than 45); AST (SGOT) 100 U/L (11-34); Albumin 2.5 g/dL (3.1-4.5); Alkaline Phosphatase 411 U/L (40-110); Anion Gap 11 mmol/L (10-20); BUN (Urea Nitrogen) 10 mg/dL (8.9-20.6); Bilirubin, Total 1.9 mg/dL (0.3-1.2); CK (CPK) 29 U/L (30-200); Calc. Creatinine Clearance 140 mL/min (70-130); Calcium 8.2 mg/dL (7.8-10.44); Carbon Dioxide 25 mmol/L (22-29); Chloride 103 mmol/L (98-107); Globulin 3.9 g/dL (2.4-3.5); Glucose 85 mg/dL (70-105); Potassium 3.5 mmol/L (3.5-5.1); Sodium 135 mmol/L (136-145)
[2025-04-19 06:16] LABS: #Basophils 0.09 10x3/uL (0.0-0.2); #Eosinophils 0.30 10x3/uL (0.0-0.7); #Monocytes 0.66 10x3/uL (0.11-0.59); #Neutrophils 7.77 10x3/uL (1.40-6.50); %Basophils 0.9 % (0.0-1.0); %Eosinophils 3.0 % (0.0-10.0); %Lymphocytes 10.3 % (21.0-51.0); %Monocytes 6.6 % (0.0-10.0); %Neutrophils 77.5 % (42.0-75.0); Hematocrit 32.2 % (42.0-52.0); Hemoglobin 10.6 g/dL (14.0-18.0); Mean Corpuscular Hemoglobin 34.8 pg (27.0-31.0); Mean Corpuscular Volume 105.6 fL (78.0-98.0); Platelet Count 156 10x3/uL (130-400); Red Blood Cell (RBC) Count 3.05 mill/uL (4.70-6.10); White Blood Cell (WBC) Count 10.02 10x3/uL (4.8-10.8)
[2025-04-19 11:06] LABS: #Basophils 0.10 10x3/uL (0.0-0.2); #Eosinophils 0.34 10x3/uL (0.0-0.7); #Monocytes 0.62 10x3/uL (0.11-0.59); #Neutrophils 8.01 10x3/uL (1.40-6.50); %Basophils 1.0 % (0.0-1.0); %Eosinophils 3.3 % (0.0-10.0); %Lymphocytes 11.3 % (21.0-51.0); %Monocytes 6.0 % (0.0-10.0); %Neutrophils 76.9 % (42.0-75.0); Hematocrit 36.3 % (42.0-52.0); Hemoglobin 11.3 g/dL (14.0-18.0); Mean Corpuscular Hemoglobin 33.7 pg (27.0-31.0); Mean Corpuscular Volume 108.4 fL (78.0-98.0); Platelet Count 160 10x3/uL (130-400); Red Blood Cell (RBC) Count 3.35 mill/uL (4.70-6.10); White Blood Cell (WBC) Count 10.41 10x3/uL (4.8-10.8)
[2025-04-19 13:24] LABS: ALT (SGPT) 32 U/L (Less than 45); AST (SGOT) 107 U/L (11-34); Albumin 2.6 g/dL (3.1-4.5); Alkaline Phosphatase 388 U/L (40-110); Anion Gap 13 mmol/L (10-20); BUN (Urea Nitrogen) 7 mg/dL (8.9-20.6); Bilirubin, Total 1.9 mg/dL (0.3-1.2); Calc. Creatinine Clearance 139 mL/min (70-130); Calcium 9.2 mg/dL (7.8-10.44); Carbon Dioxide 24 mmol/L (22-29); Chloride 108 mmol/L (98-107); Globulin 4.2 g/dL (2.4-3.5); Glucose 127 mg/dL (70-105); Potassium 4.1 mmol/L (3.5-5.1); Sodium 141 mmol/L (136-145)
[2025-04-20 06:26] LABS: #Basophils 0.08 10x3/uL (0.0-0.2); #Eosinophils 0.32 10x3/uL (0.0-0.7); #Monocytes 0.73 10x3/uL (0.11-0.59); #Neutrophils 6.78 10x3/uL (1.40-6.50); %Basophils 0.9 % (0.0-1.0); %Eosinophils 3.4 % (0.0-10.0); %Lymphocytes 13.5 % (21.0-51.0); %Monocytes 7.8 % (0.0-10.0); %Neutrophils 72.1 % (42.0-75.0); Hematocrit 30.9 % (42.0-52.0); Hemoglobin 9.9 g/dL (14.0-18.0); Mean Corpuscular Hemoglobin 33.6 pg (27.0-31.0); Mean Corpuscular Volume 104.7 fL (78.0-98.0); Platelet Count 153 10x3/uL (130-400); Red Blood Cell (RBC) Count 2.95 mill/uL (4.70-6.10); White Blood Cell (WBC) Count 9.40 10x3/uL (4.8-10.8)
[2025-04-20 06:39] LABS: ALT (SGPT) 28 U/L (Less than 45); AST (SGOT) 86 U/L (11-34); Albumin 2.5 g/dL (3.1-4.5); Alkaline Phosphatase 371 U/L (40-110); Anion Gap 13 mmol/L (10-20); BUN (Urea Nitrogen) 7 mg/dL (8.9-20.6); Bilirubin, Total 1.5 mg/dL (0.3-1.2); Calc. Creatinine Clearance 173 mL/min (70-130); Calcium 8.7 mg/dL (7.8-10.44); Carbon Dioxide 24 mmol/L (22-29); Chloride 101 mmol/L (98-107); Globulin 3.9 g/dL (2.4-3.5); Glucose 106 mg/dL (70-105); Potassium 3.4 mmol/L (3.5-5.1); Sodium 135 mmol/L (136-145)
[2025-04-21 05:33] LABS: #Basophils 0.12 10x3/uL (0.0-0.2); #Eosinophils 0.37 10x3/uL (0.0-0.7); #Monocytes 0.74 10x3/uL (0.11-0.59); #Neutrophils 7.85 10x3/uL (1.40-6.50); %Basophils 1.1 % (0.0-1.0); %Eosinophils 3.5 % (0.0-10.0); %Lymphocytes 11.5 % (21.0-51.0); %Monocytes 7.0 % (0.0-10.0); %Neutrophils 73.9 % (42.0-75.0); Hematocrit 34.3 % (42.0-52.0); Hemoglobin 11.0 g/dL (14.0-18.0); Mean Corpuscular Hemoglobin 34.1 pg (27.0-31.0); Mean Corpuscular Volume 106.2 fL (78.0-98.0); Platelet Count 186 10x3/uL (130-400); Red Blood Cell (RBC) Count 3.23 mill/uL (4.70-6.10); White Blood Cell (WBC) Count 10.62 10x3/uL (4.8-10.8)
[2025-04-21 05:50] LABS: Anion Gap 14 mmol/L (10-20); BUN (Urea Nitrogen) 9 mg/dL (8.9-20.6); CK (CPK) 23 U/L (30-200); Calc. Creatinine Clearance 144 mL/min (70-130); Calcium 9.2 mg/dL (7.8-10.44); Carbon Dioxide 28 mmol/L (22-29); Chloride 101 mmol/L (98-107); Glucose 77 mg/dL (70-105); Potassium 4.0 mmol/L (3.5-5.1); Sodium 139 mmol/L (136-145)
[2025-04-22 06:07] LABS: Hematocrit 31.7 % (42.0-52.0); Hemoglobin 10.3 g/dL (14.0-18.0); Mean Corpuscular Hemoglobin 34.4 pg (27.0-31.0); Mean Corpuscular Volume 106.0 fL (78.0-98.0); Platelet Count 187 10x3/uL (130-400); Red Blood Cell (RBC) Count 2.99 mill/uL (4.70-6.10); White Blood Cell (WBC) Count 10.38 10x3/uL (4.8-10.8)
[2025-04-22 06:15] LABS: Anion Gap 17 mmol/L (10-20); BUN (Urea Nitrogen) 10 mg/dL (8.9-20.6); Calc. Creatinine Clearance 160 mL/min (70-130); Calcium 9.0 mg/dL (7.8-10.44); Carbon Dioxide 26 mmol/L (22-29); Chloride 101 mmol/L (98-107); Glucose 108 mg/dL (70-105); Potassium 3.9 mmol/L (3.5-5.1); Sodium 140 mmol/L (136-145)
[2025-04-22 07:29] VITALS: TEMP 98.5
[2025-04-22 12:34] VITALS: BP 113/75
== END 2025-04-22 12:34 | disposition home or self-care (01) | DRG 872 ==
LOC: ERS 13:47 → ERHOLD 17:51 → T4-A 20:28
PROVIDERS: ADMIT Family Medicine; ATTEND Internal Medicine
DX: A41.02 Sepsis due to Methicillin resistant Staphylococcus aureus (principal); L03.115 Cellulitis of right lower limb; F10.239 Alcohol dependence with withdrawal, unspecified; M79.671 Pain in right foot; I10 Essential (primary) hypertension; E87.6 Hypokalemia; R74.01 Elevation of levels of liver transaminase levels; G40.909 Epilepsy, unspecified, not intractable, without status epilepticus; M72.8 Other fibroblastic disorders; F10.229 Alcohol dependence with intoxication, unspecified; E83.42 Hypomagnesemia; L08.9 Local infection of the skin and subcutaneous tissue, unspecified; Z88.2 Allergy status to sulfonamides
CPT/HCPCS: 36415; 76882; 80048; 80053; 80202; 80306; 82550; 83605; 83735; 84100; 85025; 86141; 87040; 93306; 96365; 96372; 96375; 97139; J0692; J0878; J1308; J1650; J1885; J2060; J2550; J3010; J3373; J3375; J3411; J3475; J7050; Q9967